=== PATIENT | male | born 1955 ===

== ENCOUNTER 2020-06-21 10:50 | Day surgery (SDC) | payer OTHER | END 2020-06-21 16:10 | disposition home or self-care (01) | LOC: AMB-ENDOS 10:50 | PROVIDERS: ATTEND Surgery | DX: D12.2 Benign neoplasm of ascending colon (principal); D12.3 Benign neoplasm of transverse colon; D12.4 Benign neoplasm of descending colon; D12.5 Benign neoplasm of sigmoid colon; Z20.828 Contact with and (suspected) exposure to other viral communicable diseases; K64.8 Other hemorrhoids; K62.82 Dysplasia of anus ==